=== PATIENT | female | born 1960 | race Caucasian/White ===

== ENCOUNTER 2021-09-18 10:52 | Outpatient (REF) | payer BC, SELFPAY ==
[2021-09-19 12:17] LABS: COVID-19 RT-PCR UVMMC Result Negative (Negative)
== END 2021-09-18 10:53 | disposition home or self-care (01) ==
LOC: NCHCN 10:52
PROVIDERS: Visit Provider Physician Assistant Medical
DX: Z20.822 Contact with and (suspected) exposure to COVID-19 (principal); J06.9 Acute upper respiratory infection, unspecified
CPT/HCPCS: U0003